=== PATIENT | male | born 1970 | race Caucasian/White ===

== ENCOUNTER → 2017-01-28 | Outpatient (CLI) | payer OTHER ==
[~2017-01-28] MED LIST: AMOXICILLIN500 MG PO; BACTRIM DS 8001 TA1 PO; FLONASE 0.05% 121 EA NAS; MOTRIN800 MG PO; OXYCONTIN30 MG PO; TRAMADOL HCL50 MG PO; TRIMOX500 MG PO
[2017-01-28 15:28] LABS: BUN 21 mg/dl (7-24); CARBON DIOXIDE 27 mmol/L (21-32); CHLORIDE 103 mmol/L (98-107); EST GLOM FILT AFRICAN AMERICAN > 60 ml/min; GLUCOSE 81 mg/dL (65-99); POTASSIUM 4.3 mmol/L (3.5-5.1); SODIUM 137 mmol/L (136-145)
== END | disposition home or self-care (01) ==
LOC: LAB 14:51
PROVIDERS: Family Medicine
DX: R03.0 Elevated blood-pressure reading, without diagnosis of hypertension (principal); M51.36 Other intervertebral disc degeneration, lumbar region

== ENCOUNTER → 2018-11-07 | Outpatient (CLI) | payer OTHER ==
[~2018-11-07] MED LIST changes: +IBU800 M1 PO; +MELOXICAM7.5 MG PO; +Motrin,Rufen800 MG PO; +SUBOXONE 8 MG-1 EACH SL
== END | disposition home or self-care (01) ==
LOC: RAD 20:24
DX: M25.511 Pain in right shoulder (principal); M54.5 Low back pain; M25.561 Pain in right knee; M25.562 Pain in left knee; R05 Cough; F17.210 Nicotine dependence, cigarettes, uncomplicated; Z82.5 Family history of asthma and other chronic lower respiratory diseases